=== PATIENT | female | born 1995 | race Caucasian/White ===

== ENCOUNTER → 2018-04-18 10:05 | Outpatient (CLI) | payer OTHER, SELFPAY ==
[2018-04-18 10:47] LABS: Add Manual Diff / Slide Review NO; Basophils Percent Auto 1.1 % (0-2); Eosinophils Percent Auto 1.1 % (2-4); Hematocrit 43.5 % (36-46); Lymphocytes Percent Auto 24.8 % (25-40); Mean Corpuscular HGB Conc 34.5 % (30-36); Mean Corpuscular Hemoglobin 28.9 PG (26-34); Mean Corpuscular Volume 83.7 fL (80-100); Monocytes Percent Auto 5.2 % (3-14); Neutrophils Absolute Auto 3700 /uL (3000-5900); Neutrophils Percent Auto 67.8 % (50-75); Platelet Count 145 X10^3/uL (150-400); White Blood Cell Count 5.4 X10^3/uL (4.5-11.0)
[2018-04-18 10:48] LABS: HEMOLYSIS < 15 (0-50); Iron 117 ug/dL (37-170)
[2018-04-18 14:48] LABS: Transferrin 248 mg/dL (206-381)
[2018-04-18 15:26] LABS: Percent Iron Saturation 36 % (15-50); Total Iron Binding Capacity 323 ug/dL (265-497)
== END ==
PROVIDERS: Family Provider Physician Assistant; PCP Physician Assistant; Visit Provider Internal Medicine Hematology & Oncology
DX: D64.9 Anemia, unspecified (principal)
CPT/HCPCS: 36415; 82728; 83540; 83550; 85025

== ENCOUNTER → 2018-05-28 09:57 | Outpatient (CLI) | payer OTHER, SELFPAY | PROVIDERS: Family Provider Physician Assistant; PCP Physician Assistant | DX: Z23 Encounter for immunization (principal) | CPT/HCPCS: 90471; 90686 ==

== ENCOUNTER → 2018-10-07 09:24 | Oncology outpatient (ONC) | payer OTHER, SELFPAY ==
[2018-10-07 09:57] LABS: Add Manual Diff / Slide Review NO; Basophils Absolute Auto 0 /uL (0-100); Basophils Percent Auto 1.2 % (0-2); Eosinophils Absolute Auto 0 /uL (0-450); Eosinophils Percent Auto 1.1 % (2-4); Hematocrit 45.2 % (36-46); Hemoglobin 15.2 g/dL (12.0-16.0); Lymphocytes Absolute Auto 1100 /uL (1100-4500); Lymphocytes Percent Auto 29.9 % (25-40); Mean Corpuscular HGB Conc 33.6 % (30-36); Mean Corpuscular Volume 86.3 fL (80-100); Monocytes Absolute Auto 300 /uL (0-900); Monocytes Percent Auto 7.2 % (3-14); Neutrophils Absolute Auto 2300 /uL (1500-7000); Neutrophils Percent Auto 60.6 % (50-75); Platelet Count 139 X10^3/uL (150-400); Red Blood Cell Count 5.23 X10^6/uL (4.0-5.2); Red Cell Distribution Width 12.5 % (11.6-14.8); White Blood Cell Count 3.8 X10^3/uL (4.5-11.0)
[2018-10-07 10:21] LABS: HEMOLYSIS < 15 (0-50); Iron 111 ug/dL (37-170)
[2018-10-07 10:32] LABS: Percent Iron Saturation 32 % (15-50); Total Iron Binding Capacity 347 ug/dL (265-497); Transferrin 272 mg/dL (206-381)
[2018-10-07 10:57] LABS: Ferritin 12.8 ng/mL (6.27-137)
== END ==
PROVIDERS: Internal Medicine Hematology & Oncology; Family Provider Physician Assistant; PCP Physician Assistant; Visit Provider Nurse Practitioner Gerontology
DX: D50.9 Iron deficiency anemia, unspecified (principal)
CPT/HCPCS: 36415; 82728; 83540; 83550; 85025

== ENCOUNTER → 2018-11-25 10:11 | Outpatient (CLI) | payer OTHER, SELFPAY ==
--- NOTE | 2018-11-25 10:13 | DI.RAD.S_ITS ---
PROCEDURE: XR KNEE LT 3V INDICATIONS: Bilateral knee pain - hx of hip dysplasia TECHNIQUE: 3 views of the knee were acquired. COMPARISON: [facility], CR, XR KNEE RT 3V, 11/25/2018, 10:20. FINDINGS: Bones: No fractures or dislocations. No suspicious bony lesions. Soft tissues: No joint effusion. No suspicious soft tissue calcifications. IMPRESSION: Radiographically of the left knee appears normal. Dictated by: Tigre Young M.D. on 11/25/2018 at 11:17 Approved by: Tigre Young M.D. on 11/25/2018 at 11:17
--- NOTE | 2018-11-25 10:13 | DI.RAD.S_ITS ---
PROCEDURE: XR KNEE RT 3V INDICATIONS: Bilateral knee pain - hx of hip dysplasia TECHNIQUE: 3 views of the knee were acquired. COMPARISON: None. FINDINGS: Bones: No fractures or dislocations. No suspicious bony lesions. Soft tissues: No joint effusion. No suspicious soft tissue calcifications. IMPRESSION: Radiographically the right knee appears normal. Dictated by: Tigre Young M.D. on 11/25/2018 at 11:17 Approved by: Tigre Young M.D. on 11/25/2018 at 11:17
--- NOTE | 2018-11-25 10:13 | DI.RAD.S_ITS ---
PROCEDURE: XR HIP W PEL IF DONE LT MIN 4V INDICATIONS: Bilateral hip pain - hx of hip dysplasia TECHNIQUE: AP pelvis with lateral view(s) of the bilateral hips (a total of 3 views). COMPARISON: [facility], , PELVIS W UNILATERAL HIP RIGHT, 10/30/2014, 17:41. FINDINGS: Bones: No fractures or dislocations. Pelvic ring appears intact. No suspicious bony lesions. Soft tissues: The visualized bowel gas pattern is normal. No suspicious soft tissue calcifications. IMPRESSION: No trauma found, no sign of hip dysplasia. Overall, normal for age. Dictated by: Tigre Young M.D. on 11/25/2018 at 11:16 Approved by: Tigre Young M.D. on 11/25/2018 at 11:17
== END ==
PROVIDERS: PCP Physician Assistant; Visit Provider Physician Assistant
DX: M25.551 Pain in right hip (principal); M25.552 Pain in left hip; M25.561 Pain in right knee; M25.562 Pain in left knee
CPT/HCPCS: 73522; 73562

== ENCOUNTER 2019-03-10 11:26 | Emergency (ER) | payer OTHER, SELFPAY ==
[2019-03-10 11:33] VITALS: BP 148/87; PULSE 92; RESP 16; TEMP 36.9; O2SAT 100
--- NOTE | 2019-03-10 12:13 | ED.ANXIETY ---
HPI - Anxiety <ALLEY Garcia - Last Filed: 03/11/19 12:51> General Chief Complaint: Anxiety Stated Complaint: Paleness, diet related, blood pressure elevated Time Seen by Provider: 03/10/19 11:28 Source: patient Mode of arrival: ambulatory Limitations: no limitations History of Present Illness HPI narrative: This is a 23 year old female, nonsmoker, with history of anemia, anxiety, thrombocytopenia, presents to ER reporting feeling jittery, oozy for a few minutes with lightheadedness and fast heart beats while at work. The patient reports she has been on each body diet since November. She has been on this restricted calorie diet from 3816-9664 calories a day which she has not been met. she reports that she has been taking average 960 calories a day for last 2 weeks. She contributes her symptoms to this diet and starving. Her co-worker noticed this morning that she was turned pale when she was having these symptoms. She also reports recurring symptoms of anxiety. She denies chest pain, irregular heart beats, short of breath, fever, chills, abdominal pain, urinary symptoms, diarrhea. She reports that after eating a cup of yogurt her symptoms mildly improved before coming into the ER. She reports nausea for last week without vomiting. She also has been having increasing anxiety. She has been prescribed with a new medication for this by her primary care provider, but she has not been taking this medication. MD complaint: heart racing and other (dizziness) Onset (ago): minute(s) Severity: mild Quality: improving Place: work History of similar episodes: No Provoking factors: emotional stress Relieving factors: other (food and snacks) Related Data Previous Rx's Medication Instructions Recorded levonorgestrel-ethinyl estradiol 1 tab PO DAILY #28 tab 04/16/18 0.1 mg-20 mcg tablet alprazolam 0.25 mg tablet See Rx Instructions PO BID #2 tab 10/25/18 prednisolone acetate 1 % eye 2 drop EYE-RIGHT BID #10 ml 11/25/18 drops,suspension Allergies Allergy/AdvReac Type Severity Reaction Status Date / Time adhesive [ADHESIVE] Allergy Intermediate rash Verified 03/10/19 11:33 Review of Systems <ALLEY Garcia - Last Filed: 03/11/19 12:51> Review of Systems General: see HPI HEENT: Denies sinus pain, ear pain, sore throat, difficulty swallowing. Reports transient dizziness. Respiratory: Denies dyspnea, cough, wheezing, hemoptysis, sputum. Cardiovascular: Denies chest pain, palpitations, orthopnea, edema. Reports transient fast heartbeats Gastrointestinal: Reports nausea. Denies vomiting, abdominal pain, diarrhea, constipation, melena. : Denies dysuria, frequency, incontinence, hematuria, urinary retention. Musculoskeletal: Denies weakness, joint pain or bony pain. Skin: Denies rash, skin lesions, or other. Neurologic: Denies weakness, headache, numbness, change in speech, confusion, seizures, incoordination. Psychiatric: No concerning psychosocial issues. 12-point review of systems is negative except for those stated above. PFSH <ALLEY Garcia - Last Filed: 03/11/19 12:51> Medical History (Updated 03/10/19 @ 13:44 by ALLEY Garcia) Microcytic anemia (Chronic ~2013) Psoriasis (Chronic) Thrombocytopenia (Chronic ~2013) HPV in female (Resolved 04/2014) Surgical History (Updated 10/10/18 @ 16:21 by ALLEY Clifton) History of third molar tooth extraction Status post tonsillectomy and adenoidectomy (05/2014) Family History (Updated 09/13/16 @ 00:00 by Rosemary Carr PA-C) Mother Thrombocytopenia Diabetes mellitus type 2, insulin dependent Fatty liver disease, nonalcoholic Portal hypertension Spleen enlarged Hepatic encephalopathy Essential hypertension Depression Social History Smoking Status: Never smoker second hand exposure: No alcohol intake: current (one glass of wine a week at the most.) substance use type: does not use Family History (Updated 09/13/16 @ 00:00 by Rosemary Carr PA-C) Mother Thrombocytopenia Diabetes mellitus type 2, insulin dependent Fatty liver disease, nonalcoholic Portal hypertension Spleen enlarged Hepatic encephalopathy Essential hypertension Depression Social History Smoking Status: Never smoker second hand exposure: No alcohol intake: current (one glass of wine a week at the most.) substance use type: does not use Exam <ALLEY Garcia - Last Filed: 03/11/19 12:51> Narrative Exam Narrative: GEN: Alert, oriented x 3, thin appearing, and in no acute distress. Head: Normal cephalic, atraumatic. No scalp or temporal tenderness, palpable mass or rash. EYES: Pupils are equal, round, and reactive to light and accommodation. Extraocular muscles are intact bilaterally. There is no subconjunctival hemorrhage, exudate and sclera non-icteric. ENT: Bilateral auditory canals and tympanic membranes. Hearing grossly intact. Facial sinuses nontender to palpate. Mucous membrane moist, no mucosal lesion. Throat without erythema, tonsillar hypertrophy or exudate. Uvula in midline, airway patent. Neck: Trachea in midline. No JVD, non-tender without lymphadenopathy. No masses or thyroid megaly. Supple, non-tender and meningeal signs. CARDIAC: Normal regular rate and rhythm without murmurs, gallops, or rubs. No chest wall tenderness. No peripheral edema, cyanosis or pallor. Capillary refill is less than 2 seconds. RESPIRATORY: Lungs are cleat to auscultate bilaterally. No cough, wheezes, rales, or rhonchi. No stridor, respiratory distress, increase work of breathing, or accessary muscle used. ABD: Abdomen soft, nontender and non-distended. No guarding or rebound tenderness to palpate. Bowel sounds are normal in all 4 quadrants. There is no palpable masses or organomegaly. EXT: Full painless ROM of all extremities with no loss of sensation, strength, effusion or edema. SKIN: Warm, dry, normal color for patient. No erythema, lesions or rash. BACK: Nontender without deformity or crepitance. No flank tenderness. NEUROLOGICAL: Alert and oriented to place, time and person. Sensation and motor function intact bilaterally. No facial droops, dysphasia. PSYCHIATRIC: Good judgement and reason, without hallucinations, abnormal affect or abnormal behaviors during the examination. Initial Vital Signs Initial Vital Signs: Vital Signs Temperature 98.4 F 03/10/19 11:33 Pulse Rate 92 H 03/10/19 11:33 Respiratory Rate 16 03/10/19 11:33 Blood Pressure 148/87 H 03/10/19 11:33 Pulse Oximetry 100 03/10/19 11:33 <Lucas Rutherford DO - Last Filed: 03/11/19 23:33> Initial Vital Signs Initial Vital Signs: Vital Signs Temperature 98.4 F 03/10/19 11:33 Pulse Rate 92 H 03/10/19 11:33 Respiratory Rate 16 03/10/19 11:33 Blood Pressure 148/87 H 03/10/19 11:33 Pulse Oximetry 100 03/10/19 11:33 Course <ALLEY Garcia - Last Filed: 03/11/19 12:51> Course Narrative: According to her history and symptoms, EKG was ordered. The lab tests was ordered for anemia and electrolyte imbalance and ketones. Patient reports shy bladder and difficulty providing urine sample and requested serum test instead. Later on, the patient reported urinary frequency to other nursing staff and POC urine dip test was ordered. She was offered for snacks and oral hydrations during her stay in ED. Orders Ordered: ED Orders 03/10/19 12:02 Complete Blood Count MAN DIFF Stat Comprehensive Metabolic Panel Stat HCG Quantitative Stat Ketones (Beta-Hydroxybutyrate) Stat 03/10/19 12:20 Urine Microscopic Stat Vital Signs - 8 hr 03/10/19 11:33 03/10/19 12:30 Temperature 98.4 F Pulse Rate 92 H 70 Respiratory Rate 16 14 Blood Pressure 148/87 H Blood Pressure [Left Arm] 120/77 Pulse Oximetry 100 98 <Lucas Rutherford DO - Last Filed: 03/11/19 23:33> Orders Ordered: ED Orders 03/10/19 12:02 Complete Blood Count MAN DIFF Stat Comprehensive Metabolic Panel Stat HCG Quantitative Stat Ketones (Beta-Hydroxybutyrate) Stat 03/10/19 12:20 Urine Microscopic Stat Vital Signs - 8 hr 03/10/19 11:33 03/10/19 12:30 Temperature 98.4 F Pulse Rate 92 H 70 Respiratory Rate 16 14 Blood Pressure 148/87 H Blood Pressure [Left Arm] 120/77 Pulse Oximetry 100 98 MDM - Anxiety <ALLEY Garcia - Last Filed: 03/11/19 12:51> Differential Diagnosis Differential diagnosis: Likely acute anxiety and other (hypoglycemia, arrhythmia, pregancy, dehydration) Medical Records Attestation: I reviewed the patient's medical records. Lab Data Attestation: I reviewed the patient's lab results. Result diagrams: 03/10/19 12:02 03/10/19 12:02 Lab Results 03/10/19 03/10/19 03/10/19 Range/Units 12:02 12:02 12:02 WBC 4.0 L (4.5-11.0) X10^3/uL RBC 4.89 (4.0-5.2) X10^6/uL Hgb 14.8 (12.0-16.0) g/dL Hct 42.9 (36-46) % MCV 87.6 (80-100) fL MCH 30.1 (26-34) PG MCHC 34.4 (30-36) % RDW 12.6 (11.6-14.8) % Plt Count 129 L (150-400) X10^3/uL Total Counted 100 Seg Neutrophils % 78.0 H (38-70) % Lymphocytes % (Manual) 20.0 L (25-45) % Monocytes % (Manual) 2.0 (2-11) % Neutrophils # (Manual) 3120 (1400-5101) /uL RBC Morphology Normal morphology Sodium 139 (137-145) mmol/L Potassium 3.6 (3.4-5.1) mmol/L Chloride 105 (98-107) mmol/L Carbon Dioxide 27 (22-32) mmol/L BUN 14 (7-17) mg/dL Creatinine 0.80 (0.52-1.04) mg/dL Estimated GFR > 60.0 (>60) mL/min BUN/Creatinine Ratio 17.5 (6-22) Glucose 72 (70-100) mg/dL Calcium 9.7 (8.4-10.2) mg/dL Total Bilirubin 0.5 (0.2-1.3) mg/dL AST 17 (14-36) IU/L ALT 13 (9-52) IU/L Alkaline Phosphatase 31 L (38-126) U/L Total Protein 6.8 (6.3-8.2) g/dL Albumin 4.5 (3.5-5.0) g/dL Globulin 2.3 (1.7-4.1) g/dL Albumin/Globulin Ratio 2.0 (1.0-2.8) HCG, Quant < 2.39 mIU/mL Urine RBC (0-5/HPF) Urine WBC (0-5/HPF) Ur Squamous Epith Cells (0-5/HPF) Urine Bacteria (None) Ur Culture Indicated? Ketones (<0.27) mmol/L 03/10/19 03/10/19 Range/Units 12:02 12:20 WBC (4.5-11.0) X10^3/uL RBC (4.0-5.2) X10^6/uL Hgb (12.0-16.0) g/dL Hct (36-46) % MCV (80-100) fL MCH (26-34) PG MCHC (30-36) % RDW (11.6-14.8) % Plt Count (150-400) X10^3/uL Total Counted Seg Neutrophils % (38-70) % Lymphocytes % (Manual) (25-45) % Monocytes % (Manual) (2-11) % Neutrophils # (Manual) (4117-0722) /uL RBC Morphology Sodium (137-145) mmol/L Potassium (3.4-5.1) mmol/L Chloride (98-107) mmol/L Carbon Dioxide (22-32) mmol/L BUN (7-17) mg/dL Creatinine (0.52-1.04) mg/dL Estimated GFR (>60) mL/min BUN/Creatinine Ratio (6-22) Glucose (70-100) mg/dL Calcium (8.4-10.2) mg/dL Total Bilirubin (0.2-1.3) mg/dL AST (14-36) IU/L ALT (9-52) IU/L Alkaline Phosphatase (38-126) U/L Total Protein (6.3-8.2) g/dL Albumin (3.5-5.0) g/dL Globulin (1.7-4.1) g/dL Albumin/Globulin Ratio (1.0-2.8) HCG, Quant mIU/mL Urine RBC None seen (0-5/HPF) Urine WBC 1-5/hpf (0-5/HPF) Ur Squamous Epith Cells 5-10 /hpf H (0-5/HPF) Urine Bacteria Few (2-10) H (None) Ur Culture Indicated? Cult not indicated Ketones 0.15 (<0.27) mmol/L Point of Care Testing Test Results Negative Urine Dip Bedside Urine Glucose Negative Bedside Urine Bilirubin - Negative Bedside Urine Ketone - Negative Urine Specific Mellette 1.010 Bedside Urine Occult Blood - Negative Bedside Urine pH 6.5 Bedside Urine Protein - Negative Bedside Urine Urobilinogen - Negative Bedside Urine Nitrite - Negative Bedside Urine Leukocytes + 70 Esterase ECG Data Attestation: I personally reviewed and interpreted this ECG as follows: Prior ECG tracings: not available for review Interpretation: Sinus rhythm with sinus arrhythmia rate at 63bpm. normal axis. No ST elevation or ectopic. 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 She reports by the time, she had a cup of yogurt before she arrived to ED and these symptoms were improved. She does not have history of hypoglycemia, or diabetes. However she has a history anemia, thrombocytopenia. She has a follow-up appointment with a director nursery school for this later this month. She has been on calorie restricting diet, Beach body, since November, however, she has not been even meeting the suggested calorie for this diet. She has been eating average about 950 kcl for last 2 weeks. She reports she has been drinking about 3 large bottles of water daily and does not think dehydration is an issue. Also her mother passed recently and she was experiencing more anxiety symptoms. EKG shows normal sinus rhythm without ectopic rate is 60s. Her CBC indicates low platelet counts as 129 and mildly low in white blood cell which are chronic issues for her and she has a follow-up appointment with a director nursery [employer]. Otherwise her chemistry looks normal and her serum ketones was negative. During her stay in ED, she felt improved. We talked in length about finding a counselor to address her anxiety and also a platform supervisor who can guide her with healthy eating and not to restrict herself from eating. She agreed with the plan of treatment and she was suggested to contact her insurance company to find these available services. She was prescribed with antidepressant recently to manage and present anxiety but she has not started on this medication yet. No further questions were expressed by the patient and she is planning to follow with her primary care provider. <Lucas Rutherford, DO - Last Filed: 03/11/19 23:33> Lab Data Lab Results 03/10/19 03/10/19 03/10/19 Range/Units 12:02 12:02 12:02 WBC 4.0 L (4.5-11.0) X10^3/uL RBC 4.89 (4.0-5.2) X10^6/uL Hgb 14.8 (12.0-16.0) g/dL Hct 42.9 (36-46) % MCV 87.6 (80-100) fL MCH 30.1 (26-34) PG MCHC 34.4 (30-36) % RDW 12.6 (11.6-14.8) % Plt Count 129 L (150-400) X10^3/uL Total Counted 100 Seg Neutrophils % 78.0 H (38-70) % Lymphocytes % (Manual) 20.0 L (25-45) % Monocytes % (Manual) 2.0 (2-11) % Neutrophils # (Manual) 3120 (4145-6533) /uL RBC Morphology Normal morphology Sodium 139 (137-145) mmol/L Potassium 3.6 (3.4-5.1) mmol/L Chloride 105 (98-107) mmol/L Carbon Dioxide 27 (22-32) mmol/L BUN 14 (7-17) mg/dL Creatinine 0.80 (0.52-1.04) mg/dL Estimated GFR > 60.0 (>60) mL/min BUN/Creatinine Ratio 17.5 (6-22) Glucose 72 (70-100) mg/dL Calcium 9.7 (8.4-10.2) mg/dL Total Bilirubin 0.5 (0.2-1.3) mg/dL AST 17 (14-36) IU/L ALT 13 (9-52) IU/L Alkaline Phosphatase 31 L (38-126) U/L Total Protein 6.8 (6.3-8.2) g/dL Albumin 4.5 (3.5-5.0) g/dL Globulin 2.3 (1.7-4.1) g/dL Albumin/Globulin Ratio 2.0 (1.0-2.8) HCG, Quant < 2.39 mIU/mL Urine RBC (0-5/HPF) Urine WBC (0-5/HPF) Ur Squamous Epith Cells (0-5/HPF) Urine Bacteria (None) Ur Culture Indicated? Ketones (<0.27) mmol/L 03/10/19 03/10/19 Range/Units 12:02 12:20 WBC (4.5-11.0) X10^3/uL RBC (4.0-5.2) X10^6/uL Hgb (12.0-16.0) g/dL Hct (36-46) % MCV (80-100) fL MCH (26-34) PG MCHC (30-36) % RDW (11.6-14.8) % Plt Count (150-400) X10^3/uL Total Counted Seg Neutrophils % (38-70) % Lymphocytes % (Manual) (25-45) % Monocytes % (Manual) (2-11) % Neutrophils # (Manual) (9869-0589) /uL RBC Morphology Sodium (137-145) mmol/L Potassium (3.4-5.1) mmol/L Chloride (98-107) mmol/L Carbon Dioxide (22-32) mmol/L BUN (7-17) mg/dL Creatinine (0.52-1.04) mg/dL Estimated GFR (>60) mL/min BUN/Creatinine Ratio (6-22) Glucose (70-100) mg/dL Calcium (8.4-10.2) mg/dL Total Bilirubin (0.2-1.3) mg/dL AST (14-36) IU/L ALT (9-52) IU/L Alkaline Phosphatase (38-126) U/L Total Protein (6.3-8.2) g/dL Albumin (3.5-5.0) g/dL Globulin (1.7-4.1) g/dL Albumin/Globulin Ratio (1.0-2.8) HCG, Quant mIU/mL Urine RBC None seen (0-5/HPF) Urine WBC 1-5/hpf (0-5/HPF) Ur Squamous Epith Cells 5-10 /hpf H (0-5/HPF) Urine Bacteria Few (2-10) H (None) Ur Culture Indicated? Cult not indicated Ketones 0.15 (<0.27) mmol/L Point of Care Testing Test Results Negative Urine Dip Bedside Urine Glucose Negative Bedside Urine Bilirubin - Negative Bedside Urine Ketone - Negative Urine Specific Mellette 1.010 Bedside Urine Occult Blood - Negative Bedside Urine pH 6.5 Bedside Urine Protein - Negative Bedside Urine Urobilinogen - Negative Bedside Urine Nitrite - Negative Bedside Urine Leukocytes + 70 Esterase Discharge Plan Departure Patient Disposition: Home Clinical Impression: Dizziness Discharge Date/Time: 03/10/19 14:01 Interventions: ED Discharge Assessment Last Done: 03/10/19 14:22 Instructions: DI for Hypoglycemia, DI for Dizziness-Nonvertigo Activity Restrictions/Additional Instructions: You have been diagnosed with [ dizziness and hypoglycemia]. What to do: *Take your medications as directed. *Follow up with your primary care provider next week, call for an appointment. Let them know you were seen in the ED and that we asked you to be seen in follow up. *Return to ED if you have any new, worsening, or concerning symptoms, such as [ recurring dizziness, chest pain, breathing difficulty, feeling like fainting]. Please be liberal with you food intake with carb and protein, and seek counseling service or dietitian to discuss and learn about healthy diet. Please try to contact your insurance company to find out additional services or your primary care provider for available services such as dietitian or counselor. Prescriptions: No Action levonorgestrel-ethinyl estrad [Aviane] 0.1-20 mg-mcg tablet 1 tab PO DAILY Qty: 28 RF: 12 prednisolone acetate 1 % drops,suspension 2 drop EYE-RIGHT BID Qty: 10 RF: 0 alprazolam 0.25 mg tablet See Rx Instructions PO BID Qty: 2 RF: 0 Referrals: Rosemary Carr PA-C [Primary Care Provider] - <Lucas Rutherford DO - Last Filed: 03/11/19 23:33> Cosign ED Attending Fariba Attestation: I was immediately available in the department for consultation. Documentation has been reviewed. I agree with assessment and plan.
[2019-03-10 12:22] LABS: RBC Urine None Seen (0-5/HPF)
[2019-03-10 12:30] VITALS: BP 120/77; PULSE 70; RESP 14; O2SAT 98
[2019-03-10 12:32] LABS: WBC Urine 1-5/HPF (0-5/HPF)
[2019-03-10 12:33] LABS: Bacteria Urine Few (2-10); Culture Indicated Urine Cult Not Indicated; Squamous Epithelial Cell Urine 5-10 /HPF (0-5/HPF)
[2019-03-10 12:34] LABS: Hematocrit 42.9 % (36-46); Hemoglobin 14.8 g/dL (12.0-16.0); Mean Corpuscular HGB Conc 34.4 % (30-36); Mean Corpuscular Hemoglobin 30.1 PG (26-34); Mean Corpuscular Volume 87.6 fL (80-100); Platelet Count 129 X10^3/uL (150-400); Red Blood Cell Count 4.89 X10^6/uL (4.0-5.2); Red Cell Distribution Width 12.6 % (11.6-14.8)
[2019-03-10 12:37] LABS: Alanine Aminotransferase 13 IU/L (9-52); Albumin 4.5 g/dL (3.5-5.0); Alkaline Phosphatase 31 U/L (38-126); Aspartate Aminotransferase 17 IU/L (14-36); BUN Creatinine Ratio 17.5 (6-22); Bilirubin Total 0.5 mg/dL (0.2-1.3); Blood Urea Nitrogen 14 mg/dL (7-17); Calcium 9.7 mg/dL (8.4-10.2); Carbon Dioxide 27 mmol/L (22-32); Chloride 105 mmol/L (98-107); Estimated Glomerular Filt Rate > 60.0 mL/min (>60); Globulin 2.3 g/dL (1.7-4.1); Glucose 72 mg/dL (70-100); HEMOLYSIS < 15 (0-50); Potassium 3.6 mmol/L (3.4-5.1); Sodium 139 mmol/L (137-145); Total Protein 6.8 g/dL (6.3-8.2)
[2019-03-10 12:47] LABS: Ketones (Beta-Hydroxybutyrate) 0.15 mmol/L (<0.27)
--- NOTE | 2019-03-10 12:54 | ED_ITS ---
HPI - Anxiety <ALLEY Garcia - Last Filed: 03/11/19 12:51> General Chief Complaint: Anxiety Stated Complaint: Paleness, diet related, blood pressure elevated Time Seen by Provider: 03/10/19 11:28 Source: patient Mode of arrival: ambulatory Limitations: no limitations History of Present Illness HPI narrative: This is a 23 year old female, nonsmoker, with history of anemia, anxiety, thrombocytopenia, presents to ER reporting feeling jittery, oozy for a few minutes with lightheadedness and fast heart beats while at work. The patient reports she has been on each body diet since November. She has been on this restricted calorie diet from 1633-4610 calories a day which she has not been met. she reports that she has been taking average 960 calories a day for last 2 weeks. She contributes her symptoms to this diet and starving. Her co-worker noticed this morning that she was turned pale when she was having these symptoms. She also reports recurring symptoms of anxiety. She denies chest pain, irregular heart beats, short of breath, fever, chills, abdominal pain, urinary symptoms, diarrhea. She reports that after eating a cup of yogurt her symptoms mildly improved before coming into the ER. She reports nausea for last week without vomiting. She also has been having increasing anxiety. She has been prescribed with a new medication for this by her [facility] provider, but she has not been taking this medication. MD complaint: heart racing and other (dizziness) Onset (ago): minute(s) Severity: mild Quality: improving Place: work History of similar episodes: No Provoking factors: emotional stress Relieving factors: other (food and snacks) Related Data Previous Rx's Medication Instructions Recorded levonorgestrel-ethinyl estradiol 1 tab PO DAILY #28 tab 04/16/18 0.1 mg-20 mcg tablet alprazolam 0.25 mg tablet See Rx Instructions PO BID #2 tab 10/25/18 prednisolone acetate 1 % eye 2 drop EYE-RIGHT BID #10 ml 11/25/18 drops,suspension Allergies Allergy/AdvReac Type Severity Reaction Status Date / Time adhesive [ADHESIVE] Allergy Intermediate rash Verified 03/10/19 11:33 Review of Systems <ALLEY Garcia Last Filed: 03/11/19 12:51> Review of Systems General: see HPI HEENT: Denies sinus pain, ear pain, sore throat, difficulty swallowing. Reports transient dizziness. Respiratory: Denies dyspnea, cough, wheezing, hemoptysis, sputum. Cardiovascular: Denies chest pain, palpitations, orthopnea, edema. Reports transient fast heartbeats Gastrointestinal: Reports nausea. Denies vomiting, abdominal pain, diarrhea, constipation, melena. : Denies dysuria, frequency, incontinence, hematuria, urinary retention. Musculoskeletal: Denies weakness, joint pain or bony pain. Skin: Denies rash, skin lesions, or other. Neurologic: Denies weakness, headache, numbness, change in speech, confusion, seizures, incoordination. Psychiatric: No concerning psychosocial issues. 12-point review of systems is negative except for those stated above. PFSH <ALLEY Garcia - Last Filed: 03/11/19 12:51> Medical History (Updated 03/10/19 @ 13:44 by ALLEY Garcia) Microcytic anemia (Chronic ~2013) Psoriasis (Chronic) Thrombocytopenia (Chronic ~2013) HPV in female (Resolved 04/2014) Surgical History (Updated 10/10/18 @ 16:21 by ALLEY Clifton) History of third molar tooth extraction Status post tonsillectomy and adenoidectomy (05/2014) Family History (Updated 09/13/16 @ 00:00 by Rosemary Carr PA-C) Mother Thrombocytopenia Diabetes mellitus type 2, insulin dependent Fatty liver disease, nonalcoholic Portal hypertension Spleen enlarged Hepatic encephalopathy Essential hypertension Depression Social History Smoking Status: Never smoker second hand exposure: No alcohol intake: current (one glass of wine a week at the most.) substance use type: does not use Family History (Updated 09/13/16 @ 00:00 by Rosemary Carr PA-C) Mother Thrombocytopenia Diabetes mellitus type 2, insulin dependent Fatty liver disease, nonalcoholic Portal hypertension Spleen enlarged Hepatic encephalopathy Essential hypertension Depression Social History Smoking Status: Never smoker second hand exposure: No alcohol intake: current (one glass of wine a week at the most.) substance use type: does not use Exam <ALLEY Garcia - Last Filed: 03/11/19 12:51> Narrative Exam Narrative: GEN: Alert, oriented x 3, thin appearing, and in no acute distress. Head: Normal cephalic, atraumatic. No scalp or temporal tenderness, palpable mass or rash. EYES: Pupils are equal, round, and reactive to light and accommodation. Extraocular muscles are intact bilaterally. There is no subconjunctival hemorrhage, exudate and sclera non-icteric. ENT: Bilateral auditory canals and tympanic membranes. Hearing grossly intact. Facial sinuses nontender to palpate. Mucous membrane moist, no mucosal lesion. Throat without erythema, tonsillar hypertrophy or exudate. Uvula in midline, airway patent. Neck: Trachea in midline. No JVD, non-tender without lymphadenopathy. No masses or thyroid megaly. Supple, non-tender and meningeal signs. CARDIAC: Normal regular rate and rhythm without murmurs, gallops, or rubs. No chest wall tenderness. No peripheral edema, cyanosis or pallor. Capillary refill is less than 2 seconds. RESPIRATORY: Lungs are cleat to auscultate bilaterally. No cough, wheezes, rales, or rhonchi. No stridor, respiratory distress, increase work of breathing, or accessary muscle used. ABD: Abdomen soft, nontender and non-distended. No guarding or rebound t enderness to palpate. Bowel sounds are normal in all 4 quadrants. There is no palpable masses or organomegaly. EXT: Full painless ROM of all extremities with no loss of sensation, strength, effusion or edema. SKIN: Warm, dry, normal color for patient. No erythema, lesions or rash. BACK: Nontender without deformity or crepitance. No flank tenderness. NEUROLOGICAL: Alert and oriented to place, time and person. Sensation and motor function intact bilaterally. No facial droops, dysphasia. PSYCHIATRIC: Good judgement and reason, without hallucinations, abnormal affect or abnormal behaviors during the examination. Initial Vital Signs Initial Vital Signs: Vital Signs Temperature 98.4 F 03/10/19 11:33 Pulse Rate 92 H 03/10/19 11:33 Respiratory Rate 16 03/10/19 11:33 Blood Pressure 148/87 H 03/10/19 11:33 Pulse Oximetry 100 03/10/19 11:33 <Lucas Rutherford, DO - Last Filed: 03/11/19 23:33> Initial Vital Signs Initial Vital Signs: Vital Signs Temperature 98.4 F 03/10/19 11:33 Pulse Rate 92 H 03/10/19 11:33 Respiratory Rate 16 03/10/19 11:33 Blood Pressure 148/87 H 03/10/19 11:33 Pulse Oximetry 100 03/10/19 11:33 Course <ALLEY Garcia - Last Filed: 03/11/19 12:51> Course Narrative: According to her history and symptoms, EKG was ordered. The lab tests was ordered for anemia and electrolyte imbalance and ketones. Patient reports shy bladder and difficulty providing urine sample and requested serum test instead. Later on, the patient reported urinary frequency to other nursing staff and POC urine dip test was ordered. She was offered for snacks and oral hydrations during her stay in ED. Orders Ordered: ED Orders 03/10/19 12:02 Complete Blood Count MAN DIFF Stat Comprehensive Metabolic Panel Stat HCG Quantitative Stat Ketones (Beta-Hydroxybutyrate) Stat 03/10/19 12:20 Urine Microscopic Stat Vital Signs - 8 hr 03/10/19 11:33 03/10/19 12:30 Temperature 98.4 F Pulse Rate 92 H 70 Respiratory Rate 16 14 Blood Pressure 148/87 H Blood Pressure [Left Arm] 120/77 Pulse Oximetry 100 98 <Lucas Rutherford DO - Last Filed: 03/11/19 23:33> Orders Ordered: ED Orders 03/10/19 12:02 Complete Blood Count MAN DIFF Stat Comprehensive Metabolic Panel Stat HCG Quantitative Stat Ketones (Beta-Hydroxybutyrate) Stat 03/10/19 12:20 Urine Microscopic Stat Vital Signs - 8 hr 03/10/19 11:33 03/10/19 12:30 Temperature 98.4 F Pulse Rate 92 H 70 Respiratory Rate 16 14 Blood Pressure 148/87 H Blood Pressure [Left Arm] 120/77 Pulse Oximetry 100 98 MDM - Anxiety <ALLEY Garcia - Last Filed: 03/11/19 12:51> Differential Diagnosis Differential diagnosis: Likely acute anxiety and other (hypoglycemia, arrhythmia, pregancy, dehydration) Medical Records Attestation: I reviewed the patient's medical records. Lab Data Attestation: I reviewed the patient's lab results. Result diagrams: 03/10/19 12:02 03/10/19 12:02 Lab Results 03/10/19 03/10/19 03/10/19 Range/Units 12:02 12:02 12:02 WBC 4.0 L (4.5-11.0) X10^3/uL RBC 4.89 (4.0-5.2) X10^6/uL Hgb 14.8 (12.0-16.0) g/dL Hct 42.9 (36-46) % MCV 87.6 (80-100) fL MCH 30.1 (26-34) PG MCHC 34.4 (30-36) % RDW 12.6 (11.6-14.8) % Plt Count 129 L (150-400) X10^3/uL Total Counted 100 Seg Neutrophils % 78.0 H (38-70) % Lymphocytes % (Manual) 20.0 L (25-45) % Monocytes % (Manual) 2.0 (2-11) % Neutrophils # (Manual) 3120 (7680-3380) /uL RBC Morphology Normal morphology Sodium 139 (137-145) mmol/L Potassium 3.6 (3.4-5.1) mmol/L Chloride 105 (98-107) mmol/L Carbon Dioxide 27 (22-32) mmol/L BUN 14 (7-17) mg/dL Creatinine 0.80 (0.52-1.04) mg/dL Estimated GFR > 60.0 (>60) mL/min BUN/Creatinine Ratio 17.5 (6-22) Glucose 72 (70-100) mg/dL Calcium 9.7 (8.4-10.2) mg/dL Total Bilirubin 0.5 (0.2-1.3) mg/dL AST 17 (14-36) IU/L ALT 13 (9-52) IU/L Alkaline Phosphatase 31 L (38-126) U/L Total Protein 6.8 (6.3-8.2) g/dL Albumin 4.5 (3.5-5.0) g/dL Globulin 2.3 (1.7-4.1) g/dL Albumin/Globulin Ratio 2.0 (1.0-2.8) HCG, Quant < 2.39 mIU/mL Urine RBC (0-5/HPF) Urine WBC (0-5/HPF) Ur Squamous Epith Cells (0-5/HPF) Urine Bacteria (None) Ur Culture Indicated? Ketones (<0.27) mmol/L 03/10/19 03/10/19 Range/Units 12:02 12:20 WBC (4.5-11.0) X10^3/uL RBC (4.0-5.2) X10^6/uL Hgb (12.0-16.0) g/dL Hct (36-46) % MCV (80-100) fL MCH (26-34) PG MCHC (30-36) % RDW (11.6-14.8) % Plt Count (150-400) X10^3/uL Total Counted Seg Neutrophils % (38-70) % Lymphocytes % (Manual) (25-45) % Monocytes % (Manual) (2-11) % Neutrophils # (Manual) (7704-4471) /uL RBC Morphology Sodium (137-145) mmol/L Potassium (3.4-5.1) mmol/L Chloride (98-107) mmol/L Carbon Dioxide (22-32) mmol/L BUN (7-17) mg/dL Creatinine (0.52-1.04) mg/dL Estimated GFR (>60) mL/min BUN/Creatinine Ratio (6-22) Glucose (70-100) mg/dL Calcium (8.4-10.2) mg/dL Total Bilirubin (0.2-1.3) mg/dL AST (14-36) IU/L ALT (9-52) IU/L Alkaline Phosphatase (38-126) U/L Total Protein (6.3-8.2) g/dL Albumin (3.5-5.0) g/dL Globulin (1.7-4.1) g/dL Albumin/Globulin Ratio (1.0-2.8) HCG, Quant mIU/mL Urine RBC None seen (0-5/HPF) Urine WBC 1-5/hpf (0-5/HPF) Ur Squamous Epith Cells 5-10 /hpf H (0-5/HPF) Urine Bacteria Few (2-10) H (None) Ur Culture Indicated? Cult not indicated Ketones 0.15 (<0.27) mmol/L Point of Care Testing Test Results Negative Urine Dip Bedside Urine Glucose Negative Bedside Urine Bilirubin - Negative Bedside Urine Ketone - Negative Urine Specific [place] 1.010 Bedside Urine Occult Blood - Negative Bedside Urine pH 6.5 Bedside Urine Protein - Negative Bedside Urine Urobilinogen - Negative Bedside Urine Nitrite - Negative Bedside Urine Leukocytes + 70 Esterase ECG Data Attestation: I personally reviewed and interpreted this ECG as follows: Prior ECG tracings: not available for review Interpretation: Sinus rhythm with sinus arrhythmia rate at 63bpm. normal axis. No ST elevation or ectopic. 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 She reports by the time, she had a cup of yogurt before she arrived to ED and these symptoms were improved. She does not have history of hypoglycemia, or diabetes. However she has a history anemia, thrombocytopenia. She has a follow-up appointment with a maid supervisor for this later this month. She has been on calorie restricting diet, Beach body, since November, however, she has not been even meeting the suggested calorie for this diet. She has been eating average about 950 kcl for last 2 weeks. She reports she has been drinking about 3 large bottles of water daily and does not think dehydration is an issue. Also her mother passed recently and she was experiencing more anxiety symptoms. EKG shows normal sinus rhythm without ectopic rate is 60s. Her CBC indicates low platelet counts as 129 and mildly low in white blood cell which are chronic issues for her and she has a follow-up appointment with a maid supervisor. Otherwise her chemistry looks normal and her serum ketones was negative. During her stay in ED, she felt improved. We talked in length about finding a counselor to address her anxiety and also a aluminum welder who can guide her with healthy eating and not to restrict herself from eating. She agreed with the plan of treatment and she was suggested to contact her insurance company to find these available services. She was prescribed with antidepressant recently to manage and present anxiety but she has not started on this medication yet. No further questions were expressed by the patient and she is planning to follow with her primary care provider. <Lucas Rutherford, DO - Last Filed: 03/11/19 23:33> Lab Data Lab Results 03/10/19 03/10/19 03/10/19 Range/Units 12:02 12:02 12:02 WBC 4.0 L (4.5-11.0) X10^3/uL RBC 4.89 (4.0-5.2) X10^6/uL Hgb 14.8 (12.0-16.0) g/dL Hct 42.9 (36-46) % MCV 87.6 (80-100) fL MCH 30.1 (26-34) PG MCHC 34.4 (30-36) % RDW 12.6 (11.6-14.8) % Plt Count 129 L (150-400) X10^3/uL Total Counted 100 Seg Neutrophils % 78.0 H (38-70) % Lymphocytes % (Manual) 20.0 L (25-45) % Monocytes % (Manual) 2.0 (2-11) % Neutrophils # (Manual) 3120 (2111-9534) /uL RBC Morphology Normal morphology Sodium 139 (137-145) mmol/L Potassium 3.6 (3.4-5.1) mmol/L Chloride 105 (98-107) mmol/L Carbon Dioxide 27 (22-32) mmol/L BUN 14 (7-17) mg/dL Creatinine 0.80 (0.52-1.04) mg/dL Estimated GFR > 60.0 (>60) mL/min BUN/Creatinine Ratio 17.5 (6-22) Glucose 72 (70-100) mg/dL Calcium 9.7 (8.4-10.2) mg/dL Total Bilirubin 0.5 (0.2-1.3) mg/dL AST 17 (14-36) IU/L ALT 13 (9-52) IU/L Alkaline Phosphatase 31 L (38-126) U/L Total Protein 6.8 (6.3-8.2) g/dL Albumin 4.5 (3.5-5.0) g/dL Globulin 2.3 (1.7-4.1) g/dL Albumin/Globulin Ratio 2.0 (1.0-2.8) HCG, Quant < 2.39 mIU/mL Urine RBC (0-5/HPF) Urine WBC (0-5/HPF) Ur Squamous Epith Cells (0-5/HPF) Urine Bacteria (None) Ur Culture Indicated? Ketones (<0.27) mmol/L 03/10/19 03/10/19 Range/Units 12:02 12:20 WBC (4.5-11.0) X10^3/uL RBC (4.0-5.2) X10^6/uL Hgb (12.0-16.0) g/dL Hct (36-46) % MCV (80-100) fL MCH (26-34) PG MCHC (30-36) % RDW (11.6-14.8) % Plt Count (150-400) X10^3/uL Total Counted Seg Neutrophils % (38-70) % Lymphocytes % (Manual) (25-45) % Monocytes % (Manual) (2-11) % Neutrophils # (Manual) (1534-4186) /uL RBC Morphology Sodium (137-145) mmol/L Potassium (3.4-5.1) mmol/L Chloride (98-107) mmol/L Carbon Dioxide (22-32) mmol/L BUN (7-17) mg/dL Creatinine (0.52-1.04) mg/dL Estimated GFR (>60) mL/min BUN/Creatinine Ratio (6-22) Glucose (70-100) mg/dL Calcium (8.4-10.2) mg/dL Total Bilirubin (0.2-1.3) mg/dL AST (14-36) IU/L ALT (9-52) IU/L Alkaline Phosphatase (38-126) U/L Total Protein (6.3-8.2) g/dL Albumin (3.5-5.0) g/dL Globulin (1.7-4.1) g/dL Albumin/Globulin Ratio (1.0-2.8) HCG, Quant mIU/mL Urine RBC None seen (0-5/HPF) Urine WBC 1-5/hpf (0-5/HPF) Ur Squamous Epith Cells 5-10 /hpf H (0-5/HPF) Urine Bacteria Few (2-10) H (None) Ur Culture Indicated? Cult not indicated Ketones 0.15 (<0.27) mmol/L Point of Care Testing Test Results Negative Urine Dip Bedside Urine Glucose Negative Bedside Urine Bilirubin - Negative Bedside Urine Ketone - Negative Urine Specific [place] 1.010 Bedside Urine Occult Blood - Negative Bedside Urine pH 6.5 Bedside Urine Protein - Negative Bedside Urine Urobilinogen - Negative Bedside Urine Nitrite - Negative Bedside Urine Leukocytes + 70 Esterase Discharge Plan Departure Patient Disposition: Home Clinical Impression: Dizziness Discharge Date/Time: 03/10/19 14:01 Interventions: ED Discharge Assessment Last Done: 03/10/19 14:22 Instructions: DI for Hypoglycemia, DI for Dizziness-Nonvertigo Activity Restrictions/Additional Instructions: You have been diagnosed with [ dizziness and hypoglycemia]. What to do: *Take your medications as directed. *Follow up with your primary care provider next week, call for an appointment. Let them know you were seen in the ED and that we asked you to be seen in follow up. *Return to ED if you have any new, worsening, or concerning symptoms, such as [ recurring dizziness, chest pain, breathing difficulty, feeling like fainting]. Please be liberal with you food intake with carb and protein, and seek counseling service or dietitian to discuss and learn about healthy diet. Please try to contact your insurance company to find out additional services or your primary care provider for available services such as dietitian or counselor . Prescriptions: No Action levonorgestrel-ethinyl estrad [Aviane] 0.1-20 mg-mcg tablet 1 tab PO DAILY Qty: 28 RF: 12 prednisolone acetate 1 % drops,suspension 2 drop EYE-RIGHT BID Qty: 10 RF: 0 alprazolam 0.25 mg tablet See Rx Instructions PO BID Qty: 2 RF: 0 Referrals: Rosemary Carr PA-C [Primary Care Provider] - <Lucas Rutherford DO - Last Filed: 03/11/19 23:33> Cosign ED Attending Wesature Attestation: I was immediately available in the department for consultation. Documentation has been reviewed. I agree with assessment and plan.
[2019-03-10 13:02] LABS: HCG Quantitative /Beta subunit < 2.39 mIU/mL
[2019-03-10 13:04] LABS: Neutrophils Absolute Manual 3120 /uL (3000-5900); RBC Morphology Normal Morphology; Total Cells Counted 100
--- NOTE | 2019-03-10 13:19 | PC.NURSE ---
Long discussion regarding diet. Pt is following 'beach body' w/ restrictive intake. Encouraged to liberalize fruits / vegetables to 'Unlimited' and to increase protein and healthy fat portions. Pt agrees. Also encouraged to seek fitness pinking machine operator consult. Encouraged to use meditation for control of anxious thoughts. Pt states she has used w/ success in the past.
== END 2019-03-10 14:01 | disposition home or self-care (01) ==
PROVIDERS: Emergency Provider Nurse Practitioner Family; PCP Physician Assistant
DX: R42 Dizziness and giddiness (principal)
CPT/HCPCS: 36415; 80053; 81003; 81015; 81025; 82009; 84702; 85025; 93005; 99282; 99284

== ENCOUNTER → 2019-04-04 12:23 | Outpatient (CLI) | payer OTHER, SELFPAY ==
[2019-04-04 12:39] LABS: Add Manual Diff / Slide Review NO; Basophils Absolute Auto 100 /uL (0-100); Basophils Percent Auto 1.4 % (0-2); Eosinophils Absolute Auto 100 /uL (0-450); Eosinophils Percent Auto 1.4 % (2-4); Hematocrit 43.6 % (36-46); Hemoglobin 14.9 g/dL (12.0-16.0); Lymphocytes Absolute Auto 1200 /uL (1100-4500); Mean Corpuscular HGB Conc 34.3 % (30-36); Mean Corpuscular Hemoglobin 30.7 PG (26-34); Mean Corpuscular Volume 89.7 fL (80-100); Monocytes Absolute Auto 400 /uL (0-900); Monocytes Percent Auto 8.6 % (3-14); Neutrophils Absolute Auto 3000 /uL (1500-7000); Neutrophils Percent Auto 62.6 % (50-75); Platelet Count 144 X10^3/uL (150-400); Red Blood Cell Count 4.86 X10^6/uL (4.0-5.2); White Blood Cell Count 4.8 X10^3/uL (4.5-11.0)
[2019-04-04 12:51] LABS: Alanine Aminotransferase 13 IU/L (9-52); Albumin 4.7 g/dL (3.5-5.0); Alkaline Phosphatase 33 U/L (38-126); Aspartate Aminotransferase 19 IU/L (14-36); Bilirubin Total 0.5 mg/dL (0.2-1.3); Blood Urea Nitrogen 14 mg/dL (7-17); Calcium 9.5 mg/dL (8.4-10.2); Carbon Dioxide 26 mmol/L (22-32); Chloride 103 mmol/L (98-107); Estimated Glomerular Filt Rate > 60.0 mL/min (>60); Globulin 2.4 g/dL (1.7-4.1); Glucose 86 mg/dL (70-100); HEMOLYSIS < 15 (0-50); Potassium 4.7 mmol/L (3.4-5.1); Sodium 139 mmol/L (137-145); Total Protein 7.1 g/dL (6.3-8.2)
[2019-04-04 12:58] LABS: Iron 56 ug/dL (37-170)
[2019-04-04 13:26] LABS: Ferritin 9.1 ng/mL (6.27-137)
== END ==
PROVIDERS: PCP Physician Assistant
DX: D50.9 Iron deficiency anemia, unspecified (principal)
CPT/HCPCS: 36415; 80053; 82728; 83540; 85025

== ENCOUNTER → 2019-04-08 16:00 | Oncology outpatient (ONC) | payer OTHER, SELFPAY ==
[2018-10-10 15:17] VITALS: BP 126/88; PULSE 71; RESP 18; TEMP 36.3; O2SAT 99
--- NOTE | 2018-10-10 16:11 | ONC.APRN.PN ---
PN -Subjective Interval history: Mayda is a very pleasant 23-year-old female who we follow in this clinic for a diagnosis of microcytic anemia due to depleted iron stores. Previously treated with 6+ months of oral iron and vitamin-C. She also has a history of long standing mild thrombocytopenia. Anti-platelet/antibody screening was negative. Previous visit was April 27, [address] Mendez. Mayda returns today for scheduled routine triage. She has no acute complaints on exam today whatsoever. Overall she is feeling well. She denies any illnesses or infections, hospitalizations since her previous visit. No recurrent fevers. No report of cough. No change in appetite specifically no early satiety, no abdominal bloating. Appetite is stable. No unexplained bleeding or bruising the patient states historically she has always been easy to bruise. Menses are much improved since initiating oral contraceptives. She discontinued her fluoxetine cold turkey several months ago. Home Medications and Allergies Home Medications Medication Instructions Recorded Confirmed Type calcium carbonate [Tums E-X] 750 mg PO PRN PRN #0 06/20/16 07/01/18 History Alprazolam See Rx Instructions .ROUTE .COMPLEX 04/16/18 07/01/18 History Triamcinolone Acetonide 0.1% See Rx Instructions .ROUTE .COMPLEX 04/16/18 07/01/18 History fluoxetine 10 mg capsule 10 mg PO QDAY #30 cap 04/16/18 07/01/18 Rx levonorgestrel-ethinyl estradiol 1 tab PO DAILY #28 tab 04/16/18 07/01/18 Rx 0.1 mg-20 mcg tablet Allergies Allergy/AdvReac Type Severity Reaction Status Date / Time adhesive [ADHESIVE] Allergy Intermediate rash Unverified 07/01/18 17:53 Exam Narrative: well appearing - Constitutional positive no acute distress - Routine HEENT Exam Eye: Present: conjunctivae pink. Absent: conjunctival icterus, scleral injection - Routine Neck Exam Present: supple. Absent: lymphadenopathy - Routine Respiratory Exam Present: Clear to auscultation bilaterally. Absent: rales, rhonchi, wheezes - Routine Cardiovascular Exam Present: RRR, S1, S2. Absent: murmur, gallop, rubs, JVD - Routine Abdominal Exam Present: soft, normoactive bowel sounds. Absent: tenderness, distended, organomegaly Palpation/Percussion: Absent: hepatomegaly, splenomegaly - Routine Extremities Exam Absent: edema - Routine Skin Exam Present: intact, normal turgor. Absent: petechiae - Routine Neurological Exam Present: alert, oriented X3 - Routine Psychiatric Exam Present: normal affect Assessment and Plan (1) Anemia Current visit: Yes Status: Acute Mayda is a very pleasant 23-year-old female who we follow in this clinic for a diagnosis of microcytic anemia due to depleted iron stores. Previously treated with 6+ months of oral iron and vitamin-C. She also has a history of long standing mild thrombocytopenia. Anti-platelet/antibody screening was negative. She looks to be quite healthy on exam today. No alarming findings on exam. CBC demonstrates white count which is a bit low at 3.8 neutrophils are within normal limits. MCV also normal at 86.3. RDW normal at 12.5. Platelets are marginally low at 139,000 hundred thirty nine thousand however this is stable. Iron profile demonstrates a total iron of 111 with saturation 32 %. Ferritin within normal limits at 12.8. I reviewed red flags with the patient which include recurrent illnesses, non resolving illnesses, unexplained weight loss, abdominal bloating, change in appetite specifically early satiety, unexplained bleeding or bruising, significant change in activity tolerance. Mayda and I also reviewed previous ultrasounds of abdomen (September 20, 2016, October 23, 2017) noting at 1 point she did have mildly enlarged spleen however follow-up ultrasound demonstrated a normal spleen. Patient is quite easy to examined there was no splenomegaly on exam today. We will continue to monitor with blood work every 6 months which includes iron profile, ferritin, CBC. Annually we will check a CMP. Patient verbalizes understanding and agrees with the above plan of care. I will have her return to clinic in 6 months time to establish with 1 of our new oncologist/waste management specialist. - Time Spent with Patient 20 mins face to face 5 mins review prior 5 mins dictation
--- NOTE | 2019-04-08 16:42 | P.PNONC_ITS ---
PN -Subjective Interval history: Diagnosis: Iron deficiency anemia and mild thrombocytopenia Interval history: Mayda is a very pleasant 23-year-old female who we follow in this clinic for a diagnosis of microcytic anemia due to depleted iron stores. Previously treated with 6+ months of oral iron and vitamin-C. She also has a history of l mindy standing mild thrombocytopenia. Anti-platelet/antibody screening was negative. The has a history of a prior splenomegaly that is resolved. Today, she is feeling well. She denies any unusual bleeding or bruising. Strength and energy level have been normal. She denies any fevers chills or night sweats. No GI complaints. She has been taking control pills and her period to been well regulated. She was seen in the emergency room to to anxiety. It appears that she had been on a diet and had hypoglycemia at the time. Her symptoms have since markedly improved. Her medications are unchanged and include control pill and alprazolam. Home Medications and Allergies Home Medications Medication Instructions Recorded Confirmed Type levonorgestrel-ethinyl estradiol 1 tab PO DAILY #28 tab 04/16/18 03/13/19 Rx 0.1 mg-20 mcg tablet alprazolam 0.25 mg tablet 0.125 mg PO ONCE PRN tab 03/13/19 03/13/19 History prednisolone acetate 1 % eye 2 drop EYE-BOTH BID PRN ml 03/13/19 03/13/19 History drops,suspension Allergies Allergy/AdvReac Type Severity Reaction Status Date / Time adhesive [ADHESIVE] Allergy Intermediate rash Verified 03/13/19 08:23 Exam - Constitutional positive no acute distress, positive average body habitus - Routine HEENT Exam Head: Present: normocephalic, atraumatic Eye: Present: EOMI, PERRL. Absent: conjunctival icterus, scleral injection ENT: Present: mucous membranes moist, oropharynx clear - Routine Neck Exam Present: supple. Absent: lymphadenopathy, thyromegaly - Routine Respiratory Exam Present: Clear to auscultation bilaterally. Absent: rales, wheezes - Routine Cardiovascular Exam Present: RRR, S1, S2. Absent: murmur - Routine Abdominal Exam Present: soft, normoactive bowel sounds. Absent: tenderness, organomegaly, mass - Routine Extremities Exam Absent: cyanosis, clubbing, edema - Routine Skin Exam Present: intact. Absent: petechiae, rash - Routine Neurological Exam Present: alert, oriented X3 - Routine Psychiatric Exam Present: normal affect, normal thought process Assessment and Plan (1) Anemia Current visit: Yes Status: Acute A 23-year-old woman with a history of iron deficiency as well as mild thrombocytopenia. Her platelet count is stable or slightly improved and she has no bleeding symptoms. Her hemoglobin hematocrit are normal although her ferritin is at the low end of normal. I recommended that she start taking a multivitamin with iron. She will return to clinic in 1 year for follow-up but sooner should the need arise.
[2019-04-08 16:56] VITALS: BP 125/68; PULSE 65; RESP 16; TEMP 36.7; O2SAT 98
== END ==
PROVIDERS: Family Provider Physician Assistant; PCP Physician Assistant; Visit Provider Nurse Practitioner Gerontology
DX: D50.9 Iron deficiency anemia, unspecified (principal); D69.6 Thrombocytopenia, unspecified
CPT/HCPCS: 99214

== ENCOUNTER → 2019-05-20 10:19 | Outpatient (CLI) | payer OTHER, SELFPAY | PROVIDERS: PCP Physician Assistant | DX: Z23 Encounter for immunization (principal) | CPT/HCPCS: 90471; 90686 ==

== ENCOUNTER → 2019-07-15 17:04 | Outpatient (CLI) | payer OTHER, SELFPAY ==
[2019-07-15 18:11] LABS: HEMOLYSIS < 15 (0-50); Iron 146 ug/dL (37-170)
[2019-07-15 18:22] LABS: Percent Iron Saturation 43 % (15-50); Total Iron Binding Capacity 338 ug/dL (265-497); Transferrin 276 mg/dL (206-381)
[2019-07-15 18:48] LABS: Ferritin 13.3 ng/mL (6.27-137)
== END ==
PROVIDERS: PCP Physician Assistant; Visit Provider Physician Assistant
DX: D50.9 Iron deficiency anemia, unspecified (principal)
CPT/HCPCS: 36415; 82728; 83540; 83550

== ENCOUNTER → 2019-10-08 12:00 | Outpatient (CLI) | payer OTHER, SELFPAY ==
[2019-10-08 14:01] LABS: Add Manual Diff / Slide Review NO; Basophils Absolute Auto 0 /uL (0-100); Basophils Percent Auto 0.8 % (0-2); Eosinophils Absolute Auto 0 /uL (0-450); Eosinophils Percent Auto 0.7 % (2-4); Hematocrit 43.3 % (36-46); Hemoglobin 15.2 g/dL (12.0-16.0); Lymphocytes Absolute Auto 1500 /uL (1100-4500); Lymphocytes Percent Auto 29.5 % (25-40); Mean Corpuscular HGB Conc 35.2 % (30-36); Mean Corpuscular Hemoglobin 31.4 PG (26-34); Mean Corpuscular Volume 89.3 fL (80-100); Monocytes Absolute Auto 400 /uL (0-900); Monocytes Percent Auto 6.7 % (3-14); Neutrophils Absolute Auto 3300 /uL (1500-7000); Neutrophils Percent Auto 62.3 % (50-75); Platelet Count 135 X10^3/uL (150-400); Red Blood Cell Count 4.84 X10^6/uL (4.0-5.2); Red Cell Distribution Width 12.2 % (11.6-14.8); White Blood Cell Count 5.2 X10^3/uL (4.5-11.0)
[2019-10-08 17:25] LABS: Ferritin 18 ng/mL (6-137)
== END ==
PROVIDERS: PCP Nurse Practitioner Family; Referring Provider Nurse Practitioner Family; Visit Provider Nurse Practitioner Family
DX: D50.9 Iron deficiency anemia, unspecified (principal); D69.3 Immune thrombocytopenic purpura
CPT/HCPCS: 36415; 82728; 85025

== ENCOUNTER 2019-11-14 09:14 | Emergency (ER) | payer OTHER, SELFPAY ==
[2019-11-14 09:15] VITALS: BP 132/82; PULSE 80; RESP 18; O2SAT 99
--- NOTE | 2019-11-14 09:44 | ED.ABDPAIN ---
HPI - Abdominal Pain General Chief Complaint: Abdominal Pain Stated Complaint: abdominal pain Time Seen by Provider: 11/14/19 09:24 Source: patient Mode of arrival: Ambulatory Limitations: no limitations History of Present Illness HPI narrative: CC: Right upper and lower quadrant abdominal pain HPI: The patient is a 24-year-old female who presents to the emergency department after she was seen in her doctor's office and the nurse practitioner examining the patient noted that she had tenderness to palpation in the right hypochondria am upper and lower quadrants of the abdomen. She immediately sent the patient to the emergency department for further evaluation. The patient states that her pain and discomfort is worse after eating bread and seeds. She states that for the past week she has had intermittent diarrhea partially relieved by Imodium. She denies any melena hematochezia. She states that yesterday she had tenderness on self palpation to the right lateral navel area. She denies being or ever being . Her last menstrual period was on October 26. She states that she is not sexually active in over 1 year. She denies a history of ovarian cysts but her mother has a history of ovarian cyst. The pain is crampy and sharp and worse on palpation. She denies a history of Crohn's disease ulcerative colitis or irritable bowel syndrome as well as diverticulitis. She has a past history of having had an enlarged spleen. She denies a history of pancreatitis diabetes mellitus asthma tuberculosis hepatitis and HIV. 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 She rarely drinks alcohol does not use any drugs, marijuana, chew tobacco, vapor smoke cigarettes. She denies any change in weight fever chills or sweats headache nasal congestion sore throat shortness of breath cough chest pain palpitations dizziness, nausea vomiting melena or hematochezia. She has had intermittent diarrhea. She denies any urinary symptoms or kidney stones any unusuual vaginal discharge or bleeding. Related Data Home Medications Medication Instructions Recorded Confirmed alprazolam 0.25 mg tablet 0.125 mg PO ONCE PRN tab 03/13/19 10/08/19 SolaRay #1 ea 05/19/19 10/08/19 Previous Rx's Medication Instructions Recorded levonorgestrel-ethinyl estradiol 1 tab PO DAILY #28 tab 04/11/19 0.1 mg-20 mcg tablet buspirone 5 mg tablet 5 mg PO BID #180 tab 10/08/19 dicyclomine 20 mg PO TID #15 tab 11/14/19 loperamide 2 mg PO Q4H #10 cap 11/14/19 ondansetron HCl [Zofran] 4 mg PO Q6H PRN #10 tab 11/14/19 Allergies Allergy/AdvReac Type Severity Reaction Status Date / Time adhesive [ADHESIVE] Allergy Intermediate rash Verified 11/14/19 08:47 fluoxetine AdvReac flushing; Verified 11/14/19 08:47 nausea Review of Systems Review of Systems Narrative: Review of systems were all negative except for those mentioned in the history of present illness. Patient History Medical History HPV in female (Resolved 04/2014) Idiopathic thrombocytopenia (Acute) Microcytic anemia (Chronic ~2013) Psoriasis (Chronic) Thrombocytopenia (Chronic ~2013) Surgical History History of third molar tooth extraction Status post tonsillectomy and adenoidectomy (05/2014) Family History Mother Thrombocytopenia Diabetes mellitus type 2, insulin dependent Fatty liver disease, nonalcoholic Portal hypertension Spleen enlarged Hepatic encephalopathy Essential hypertension Depression Social History Smoking Status: Never smoker second hand exposure: No alcohol intake: current (one glass of wine a week at the most.) substance use type: does not use Smoking Status: Never smoker Substance Use Type: does not use Exam Narrative Exam Narrative: PHYSICAL EXAM: CONSTITUTIONAL: Awake, Alert, Oriented, Coherent, Cooperative in NAD. Does not appear toxic or ill. HEAD: AT/NC EENT: PERRL, FROM of eyes, no discharge,. No epistaxis or nasal drainage Oral mucosa is moist and pink, posterior pharynx is without erythema or exudate. NECK: Supple, no obvious JVD, Trachea is midline without stridor, no palpable LN . SPINE: No gross deformity, no palpable tenderness of the cervical, thoracic, lumbar or sacral spine. No CVA tenderness. THORAX: No deformity, retractions, chest wall tenderness. LUNGS: Clear with symmetrical breath sounds without respiratory distress HEART: Normal heart tones, regular rhythm and rate without murmur. ABDOMEN: Soft, tender on palpation with mild guarding in the right upper and hypochondrium lateral to the umbilicus. EXTREMITIES: No edema, deformity or tenderness. SKIN: No rash, bruising, petechiae or purpura. NEURO: Awake, alert, oriented, conversive, cranial nerves II-XII are symmetrical and normal, moves all 4 extremities . Initial Vital Signs Initial Vital Signs: Vital Signs Pulse Rate 80 11/14/19 09:15 Respiratory Rate 18 11/14/19 09:15 Blood Pressure 132/82 11/14/19 09:15 Pulse Oximetry 99 11/14/19 09:15 Course Course Course Narrative: 1149; CT of there is a moderate amount of stool seen within the colon. No abnormality of the appendix is seen. No gallbladder abnormality is seen by CT. No biliary dilation. If clinically appropriate please consider dedicated right upper quadrant ultrasound for further evaluation. The patient was tender in the right upper quadrant will order an ultrasound of her gallbladder. 13:17 the patient's ultrasound of reveals no evidence of cholelithiasis or evidence of acute cholecystitis. Her CT scan did not reveal any evidence of of appendicitis or any other acute inflammatory bowel disease. The patient will be discharged home and advised to use loperamide for recurrent diarrhea and for abdominal cramps Bentyl 20 mg 3 times a day as needed. Orders Ordered: Discontinued Medications Sodium Chloride (Normal Saline 0.9%) 1,000 mls @ 1,000 mls/hr IV BOLUS ONE Stop: 11/14/19 11:36 Last Infusion: 11/14/19 12:43 Dose: 0 mls/hr Documented by: Admin: 11/14/19 11:30 Dose: 1,000 mls/hr Documented by: DAVIS Vital Signs Vital signs: Vital Signs - 8 hr 11/14/19 09:15 11/14/19 12:42 Pulse Rate 80 58 L Respiratory Rate 18 20 Blood Pressure 132/82 Blood Pressure [Right Arm] 117/65 Pulse Oximetry 99 100 MDM - Abdominal Pain Lab Data Result diagrams: 11/14/19 10:15 11/14/19 10:15 Labs: Lab Results 11/14/19 11/14/19 11/14/19 Range/Units 09:33 10:15 10:15 WBC 2.8 L (4.5-11.0) X10^3/uL RBC 4.71 (4.0-5.2) X10^6/uL Hgb 14.6 (12.0-16.0) g/dL Hct 42.3 (36-46) % MCV 89.6 (80-100) fL MCH 31.0 (26-34) PG MCHC 34.6 (30-36) % RDW 12.1 (11.6-14.8) % Plt Count 112 L (150-400) X10^3/uL Neut % (Auto) 62.6 (50-75) % Lymph % (Auto) 25.7 (25-40) % Citrus % (Auto) 8.5 (3-14) % Eos % (Auto) 1.4 L (2-4) % Baso % (Auto) 1.8 (0-2) % Neut # (Auto) 1800 (2417-7734) /uL Lymph # (Auto) 700 L (0979-7329) /uL Citrus # (Auto) 200 (0-900) /uL Eos # (Auto) 0 (0-450) /uL Baso # (Auto) 100 (0-100) /uL PT 11.8 (10.1-12.7) SECONDS INR 1.0 (0.9-1.3) APTT 30 (26.4-36.2) SECONDS Sodium (137-145) mmol/L Potassium (3.4-5.1) mmol/L Chloride (98-107) mmol/L Carbon Dioxide (22-32) mmol/L BUN (7-17) mg/dL Creatinine (0.52-1.04) mg/dL Estimated GFR (>60) mL/min BUN/Creatinine Ratio (6-22) Glucose (70-100) mg/dL Calcium (8.4-10.2) mg/dL Total Bilirubin (0.2-1.3) mg/dL AST (14-36) IU/L ALT (<35) IU/L Alkaline Phosphatase (38-126) U/L Total Protein (6.3-8.2) g/dL Albumin (3.5-5.0) g/dL Globulin (1.7-4.1) g/dL Albumin/Globulin Ratio (1.0-2.8) Lipase (23-300) U/L Urine RBC None seen (0-5/HPF) Urine WBC 0-1/hpf (0-5/HPF) Ur Squamous Epith Cells 1-5 /hpf (0-5/HPF) Amorphous Sediment 2+ Urine Bacteria Few (2-10) H (None) Ur Culture Indicated? Specimen cultured 11/14/19 Range/Units 10:15 WBC (4.5-11.0) X10^3/uL RBC (4.0-5.2) X10^6/uL Hgb (12.0-16.0) g/dL Hct (36-46) % MCV (80-100) fL MCH (26-34) PG MCHC (30-36) % RDW (11.6-14.8) % Plt Count (150-400) X10^3/uL Neut % (Auto) (50-75) % Lymph % (Auto) (25-40) % Citrus % (Auto) (3-14) % Eos % (Auto) (2-4) % Baso % (Auto) (0-2) % Neut # (Auto) (1589-1146) /uL Lymph # (Auto) (8174-2587) /uL Citrus # (Auto) (0-900) /uL Eos # (Auto) (0-450) /uL Baso # (Auto) (0-100) /uL PT (10.1-12.7) SECONDS INR (0.9-1.3) APTT (26.4-36.2) SECONDS Sodium 140 (137-145) mmol/L Potassium 4.5 (3.4-5.1) mmol/L Chloride 107 (98-107) mmol/L Carbon Dioxide 28 (22-32) mmol/L BUN 15 (7-17) mg/dL Creatinine 0.75 (0.52-1.04) mg/dL Estimated GFR > 60.0 (>60) mL/min BUN/Creatinine Ratio 20.0 (6-22) Glucose 92 (70-100) mg/dL Calcium 9.4 (8.4-10.2) mg/dL Total Bilirubin 0.4 (0.2-1.3) mg/dL AST 24 (14-36) IU/L ALT 19 (<35) IU/L Alkaline Phosphatase 35 L (38-126) U/L Total Protein 6.9 (6.3-8.2) g/dL Albumin 4.5 (3.5-5.0) g/dL Globulin 2.4 (1.7-4.1) g/dL Albumin/Globulin Ratio 1.9 (1.0-2.8) Lipase 54 (23-300) U/L Urine RBC (0-5/HPF) Urine WBC (0-5/HPF) Ur Squamous Epith Cells (0-5/HPF) Amorphous Sediment Urine Bacteria (None) Ur Culture Indicated? Point of care testing: Point of Care Testing Test Results Negative Urine Dip Bedside Urine Glucose Negative Bedside Urine Bilirubin - Negative Bedside Urine Ketone - Negative Urine Specific [place] 1.015 Bedside Urine Occult Blood - Negative Bedside Urine pH 7.5 Bedside Urine Protein + 30 Bedside Urine Urobilinogen +/- 1mg Bedside Urine Nitrite - Negative Bedside Urine Leukocytes +/- 15 Esterase Discharge Plan Departure Patient Disposition: Home Clinical Impression: Abdominal pain Qualifiers: Abdominal location: right upper quadrant Qualified Code(s): R10.11 - Right upper quadrant pain Discharge Date/Time: 11/14/19 13:44 Instructions: DI for Abdominal Pain-Adult, Loperamide (By mouth) Activity Restrictions/Additional Instructions: 1. Or drink 2-3 L of fluid per day to keep yourself hydrated. 2. Use loperamide as prescribed for diarrhea. 3. For abdominal pain and cramps use Bentyl 20 mg 3 times a day. 4. For nausea and vomiting use the Zofran. 5. Your CT scan was negative for any inflammatory bowel disease or appendicitis. Your ultrasound of the right upper quadrant was negative for acute cholecystitis or gallstones. 6. You need to call your primary care physician's office and make an appointment to be re-evaluated in 48-72 hours. If you develop fever, worsening pain or discomfort, persistent uncontrolled nausea and vomiting, or passing-out you need to return to the emergency department for further evaluation or proceed to the nearest emergency department where you are. Prescriptions: New loperamide 2 mg capsule 2 mg PO Q4H Qty: 10 RF: 1 dicyclomine 20 mg tablet 20 mg PO TID Qty: 15 RF: 0 ondansetron HCl [Zofran] 4 mg tablet 4 mg PO Q6H PRN (Reason: nausea and vomiting) Qty: 10 RF: 0 No Action levonorgestrel-ethinyl estrad [Aviane] 0.1-20 mg-mcg tablet 1 tab PO DAILY Qty: 28 RF: 12 alprazolam 0.25 mg tablet 0.125 mg PO ONCE PRNRF: 0 buspirone 5 mg tablet 5 mg PO BID Qty: 180 RF: 1 (DME) SolaRay Qty: 1 RF: 0 Referrals: Favio Jo ARNP [Primary Care Provider] -
[2019-11-14 09:46] LABS: RBC Urine None Seen (0-5/HPF)
[2019-11-14 09:55] LABS: Amorphous Sediment Urine 2+; Bacteria Urine Few (2-10); Culture Indicated Urine Specimen Cultured; Squamous Epithelial Cell Urine 1-5 /HPF (0-5/HPF); WBC Urine 0-1/HPF (0-5/HPF)
[2019-11-14 10:24] LABS: Add Manual Diff / Slide Review NO; Basophils Absolute Auto 100 /uL (0-100); Basophils Percent Auto 1.8 % (0-2); Eosinophils Absolute Auto 0 /uL (0-450); Eosinophils Percent Auto 1.4 % (2-4); Hematocrit 42.3 % (36-46); Hemoglobin 14.6 g/dL (12.0-16.0); Lymphocytes Absolute Auto 700 /uL (1100-4500); Lymphocytes Percent Auto 25.7 % (25-40); Mean Corpuscular HGB Conc 34.6 % (30-36); Mean Corpuscular Volume 89.6 fL (80-100); Monocytes Absolute Auto 200 /uL (0-900); Monocytes Percent Auto 8.5 % (3-14); Neutrophils Absolute Auto 1800 /uL (1500-7000); Neutrophils Percent Auto 62.6 % (50-75); Platelet Count 112 X10^3/uL (150-400); Red Blood Cell Count 4.71 X10^6/uL (4.0-5.2); Red Cell Distribution Width 12.1 % (11.6-14.8); White Blood Cell Count 2.8 X10^3/uL (4.5-11.0)
[2019-11-14 10:31] LABS: Prothrombin Time 11.8 SECONDS (10.1-12.7)
[2019-11-14 10:33] LABS: PTT Partial Thromboplastin Tim 30 SECONDS (26.4-36.2)
[2019-11-14 10:35] LABS: Alanine Aminotransferase 19 IU/L (<35); Albumin 4.5 g/dL (3.5-5.0); Albumin Globulin Ratio 1.9 (1.0-2.8); Alkaline Phosphatase 35 U/L (38-126); Aspartate Aminotransferase 24 IU/L (14-36); Bilirubin Total 0.4 mg/dL (0.2-1.3); Blood Urea Nitrogen 15 mg/dL (7-17); Calcium 9.4 mg/dL (8.4-10.2); Carbon Dioxide 28 mmol/L (22-32); Chloride 107 mmol/L (98-107); Estimated Glomerular Filt Rate > 60.0 mL/min (>60); Globulin 2.4 g/dL (1.7-4.1); Glucose 92 mg/dL (70-100); HEMOLYSIS < 15 (0-50); Lipase 54 U/L (23-300); Potassium 4.5 mmol/L (3.4-5.1); Sodium 140 mmol/L (137-145); Total Protein 6.9 g/dL (6.3-8.2)
--- NOTE | 2019-11-14 10:38 | DI.CT.S_ITS ---
PROCEDURE: CT ABDOMEN PELVIS W CON INDICATIONS: severe right upper, hypochondrium and lower quadrant tendern TECHNIQUE: After the administration of intravenous contrast, 5 mm thick sections acquired from the diaphragm to the symphysis. 5 mm coronal and sagittal reformats were acquired. For radiation dose reduction, the following was used: automated exposure control, adjustment of mA and/or kV according to patient size. COMPARISON: [facility], , ABDOMEN LIMITED, 10/23/2017, 16:21. [facility], , ABDOMEN COMPLETE, 09/20/2016, 7:55. FINDINGS: Image quality: Excellent. ABDOMEN: Lung bases: Lung bases are clear. Heart size is normal. Solid organs: Liver is normal in size and enhancement. Gallbladder demonstrates no significant CT abnormality. Biliary system is non dilated. Pancreas enhances normally. The spleen is mildly enlarged, measuring 14 cm craniocaudal. Incidental note is made of an accessory splenule along the hilum of the primary spleen. No adrenal nodules. Kidneys demonstrate normal size and enhancement, without hydronephrosis. Peritoneum and bowel: Evaluation of the peritoneal cavity is limited by relative lack of intraperitoneal fat. The appendix is partially seen and appears normal, as on series 2 image 66. No focal right lower quadrant inflammatory changes are seen. No focal left lower quadrant inflammatory changes are seen. There is a moderate amount of stool seen within the colon. Bowel loops demonstrate normal wall thickness and caliber. No free fluid or air. Nodes and vessels: No retroperitoneal or mesenteric adenopathy by size criteria. Aorta and inferior vena cava are normal in size. Miscellaneous: No ventral hernias. PELVIS: Genitourinary: Bladder wall thickness is normal. Miscellaneous: No inguinal hernias or adenopathy. Bones: No suspicious bony lesions. No vertebral body compression fractures. IMPRESSION: There is a moderate amount of stool seen within the colon. Please correlate with an underlying history of constipation. No abnormality of the appendix is seen. No gallbladder abnormality is seen by CT. No biliary dilatation. If clinically appropriate, please consider a dedicated right upper quadrant ultrasound for further evaluation. Incidental note is made of: Mild splenomegaly Dictated by: Ash Kim M.D. on 11/14/2019 at 9:55 Approved by: Ash Kim M.D. on 11/14/2019 at 10:00
[2019-11-14] MEDS: SODIUM CHLORIDE 0.9% 1,000 ML 1000 ML IV (11:30)
--- NOTE | 2019-11-14 11:50 | DI.US.S_ITS ---
PROCEDURE: US ABDOMEN LIMITED INDICATIONS: RUQ TENDERNESS. EVALUATE FOR GALLSTONES TECHNIQUE: Real-time focused scanning was performed of the abdomen, with image documentation. COMPARISON: [facility], CT, CT ABDOMEN PELVIS W CON, 11/14/2019, 10:36. [facility], CR, CHEST 2 VIEW, 12/06/2017, 15:47. [facility], CR, CHEST 2 VIEW, 08/03/2007, 11:43. [facility], , CHEST 2 VIEW, 07/23/2007, 10:29. FINDINGS: Imaged portions of the liver are within normal limits. No focal liver lesions are identified. No intrahepatic or extrahepatic biliary dilatation is identified. The common bile duct measures 4 mm in diameter. The gallbladder is normal in size. There is no gallbladder wall thickening or pericholecystic fluid. No cholelithiasis is evident. The patient did not exhibit a positive sonographic Hernandez sign. Imaged portions of the pancreas are unremarkable. Please note that the right kidney, abdominal aorta, and inferior vena cava were not imaged. No significant free fluid is seen within the right upper quadrant. IMPRESSION: No cholelithiasis or evidence of acute cholecystitis. Dictated by: Richard Lizarraga M.D. on 11/14/2019 at 12:09 Approved by: Richard Lizarraga M.D. on 11/14/2019 at 12:10
[2019-11-14 12:42] VITALS: BP 117/65; PULSE 58; RESP 20; O2SAT 100
[2019-11-14 13:41] VITALS: BP 101/71; PULSE 58; RESP 12; O2SAT 100
== END 2019-11-14 13:44 | disposition home or self-care (01) ==
PROVIDERS: Emergency Provider Emergency Medicine; PCP Nurse Practitioner Family
DX: R10.11 Right upper quadrant pain (principal); R10.30 Lower abdominal pain, unspecified
CPT/HCPCS: 36415; 74177; 76705; 80053; 81003; 81015; 81025; 83690; 85025; 85610; 85730; 87086; 96360; 99284; Q9967

== ENCOUNTER → 2020-01-29 09:16 | Outpatient (CLI) | payer OTHER, SELFPAY ==
[2020-01-30 05:10] LABS: RPR Screen Non Reactive (Non Reactive)
== END ==
PROVIDERS: PCP Nurse Practitioner Family; Referring Provider Nurse Practitioner Family; Visit Provider Nurse Practitioner Family
DX: Z20.2 Contact with and (suspected) exposure to infections with a predominantly sexual mode of transmission (principal)
CPT/HCPCS: 36415; 86592